=== PATIENT | male | born 1950 | race Caucasian/White ===

== ENCOUNTER 2016-05-29 15:55 | Emergency (ER) | payer OTHER ==
--- NOTE | 2016-05-29 16:35 | UC ---
Respiratory Complaint HPI - HPI Summary HPI Summary: The patient comes in today for: 1. Sneezing, rhinitis, chilled, diarrhea, vertigo, blurry vision.: Onset: one month. Palliative/Provocative: Nothing makes symptoms better or worse. Quality: Pressure. Region: Sinuses. Severity: 08/28 Time: Comes and goes--"fine right now." Associated symptoms: Vertigo: He states he has had this "turning sensation" every time he takes cold medication for years "ever since I was small." Blurred vision: Comes and goes. It is "a little blurry"\\ at this time. No known problems with diabetes or sugar, but he does not have primary care provider. Temperature: No temperatures taken. Rhinitis: Clear--yellow not. Sinus pressure: Present. Diarrhea: He only had two stools today. Urination: Light yellow. Blurred vision: 2-3 days. No history of blood sugar problems. Vertigo: Head maneuvers does not make his vertigo worse. Hearing: Normal Incoordination of arms or legs: None. Focal neurologic complaints: no numbness, focal weakness, or incoordination, or slurred speech. Cough: Present for about "a couple weeks." Cough production: None. Chest pain: None. Dyspnea: none. * - History of Current Complaint Chief Complaint: UCRespiratory Stated Complaint: CHEST CONGESTION,DIARRHEA Time Seen by Provider: 05/29/16 16:21 Hx Obtained From: Patient - Allergies/Home Medications Allergies/Adverse Reactions: Allergies Allergy/AdvReac Type Severity Reaction Status Date / Time No Known Allergies Allergy Verified 05/29/16 16:06 Home Medications: Home Medications Chlorpheniramine & Phenylephri [Sinus & Allergy PE Maximu] 1 tab PO PRN [History] PMH/Surg Hx/FS Hx/Imm Hx Previously Healthy: Yes Endocrine History Of: Denies: Diabetes, Thyroid Disease, Hyperthyroidism, Hypothyroidism, Dyslipidemia Cardiovascular History Of: Denies: Cardiac Disorders, Hypertension, Pacemaker/ICD, Myocardial Infarction , Congestive Heart Failure, Atrial Fibrillation, Deep Vein Thrombosis, Bleeding Disorders Respiratory History Of: Denies: COPD, Asthma, Bronchitis, Pneumonia, Pulmonary Embolism GI/ History Of: Denies: Gastroesophageal Reflux, Ulcer, Gastrointestinal Bleed, Gall Bladder Disease, Kidney Stones, Diverticulitis, Renal Disease, Urosepsis Neurological History Of: Denies: TIA, CVA, Dementia, Seizures, Migraine Psychological History Of: Denies: Anxiety, Depression, Bipolar Disorder, Schizophrenia, Post Traumatic Stress Disorder Cancer History Of: Denies: Lung Cancer, Colorectal Cancer, Breast Cancer, Prostate Cancer, Cervical Cancer Other History Of: Negative For: HIV, Hepatitis B, Hepatitis C, Anticoagulant Therapy - Surgical History Surgical History: None - Family History Known Family History: Negative: Cardiac Disease, Hypertension, Diabetes - Social History Occupation: Employed Full-time Alcohol Use: None Substance Use Type: None Type: Smokeless Tobacco Amount Used/How Often: chews approx 3xs per day Length of Time of Smoking/Using Tobacco: 25 + yrs Have You Smoked in the Last Year: Yes - Immunization History Most Recent Influenza Vaccination: current Review of Systems Constitutional: Negative Skin: Negative Eyes: Blurred Vision ENT: Sore Throat - "very minor.", Nasal Discharge Respiratory: Cough Gastrointestinal: Negative Genitourinary: Negative All Other Systems Reviewed And Are Negative: Yes Physical Exam Triage Information Reviewed: Yes Appearance: Well-Appearing, No Pain Distress, Well-Nourished Vital Signs: Initial Vital Signs Temp 100.1 F 05/29/16 15:59 Pulse 81 05/29/16 15:59 Resp 16 05/29/16 15:59 Pulse Ox 97 05/29/16 15:59 Vital Signs Reviewed: Yes Eyes: Positive: Conjunctiva Clear. Negative: Discharge ENT: Positive: Hearing grossly normal, Nasal congestion. Negative: Pharyngeal erythema, Nasal drainage, TM bulging, TM dull, TM red, Tonsillar swelling, Tonsillar exudate Dental: Negative: Gross Decay/Caries @, Dental Fracture @ Neck: Positive: Supple, Nontender, No Lymphadenopathy. Negative: Nuchal Rigidity Respiratory: Positive: Chest non-tender, Lungs clear, No respiratory distress, No accessory muscle use. Negative: Crackles, Wheezing Cardiovascular: Positive: RRR, No Murmur Abdomen Description: Positive: Nontender, No Organomegaly, Soft. Negative: Distended, Guarding Musculoskeletal: Positive: Strength Intact, ROM Intact Neurological: Positive: Alert, Muscle Tone Normal, Other: - Neurologic exam: General inspection: No fasciculations. Muscular tone: Normal--no rigidity. Strength: Upper extremity: Biceps: normal for age and symmetrical Triceps: normal for age and symmetrical Deltoid: normal for age and symmetrical Hand screw remover: normal for age and symmetrical Lower extremity: Hip flexors: normal for age and symmetrical Knee extensors: normal for age and symmetrical Knee flexors: normal for age and symmetrical Dorsiflexors: normal for age and symmetrical Plantar flexors: normal for age and symmetrical Cranial nerves (I-XII): normal. Reflexes: Upper extremity: Biceps: 2+/2 x 2. Triceps: 2+/2 x 2. Brachioradialis: 2+/2 x 2. Lower extremity: Patellar: 2+/2 x 2. Achilles: 2+/2 x 2. Babinski: downgoing bilaterally. Coordination: Upper extremity: Finger to nose, fingertips to thumb, patting hands on thighs and alternating--all normal. Lower extremity: Heel up and down bourne--normal. Rhomberg: normal Gait: normal Heel to toe gait: normal Psychological: Positive: Age Appropriate Behavior, Consolable Skin: Negative: breakdown UC Diagnostic Evaluation - Laboratory O2 Sat by Pulse Oximetry: 97 Diagnostic Studies Comment: Random blood sugar: 99 Respiratory Course/Dx - Course Course Of Treatment: Patient told of his RBS result. He wanted medication for his sinus and vertigo. - Differential Dx/Diagnosis Differential Diagnosis/HQI/PQRI: Bronchitis, Laryngitis, Sinusitis Provider Diagnoses: Sinusitis. Vertigo. blurred vision Discharge - Discharge Plan Condition: Stable Disposition: HOME Patient Education Materials: Sinusitis (ED) Forms: *Work Release Referrals: No Primary Care Phys,NOPCP [Primary Care Provider] -
== END 2016-05-29 17:41 | disposition home or self-care (01) ==
LOC: UCCORT 15:55
DX: J32.9 Chronic sinusitis, unspecified (principal); R42 Dizziness and giddiness; H53.8 Other visual disturbances; F17.220 Nicotine dependence, chewing tobacco, uncomplicated
CPT/HCPCS: 99212; G0463